=== PATIENT | female | born 1940 | race Caucasian/White ===

== ENCOUNTER 2017-07-14 12:29 | Inpatient (IN) | payer MEDICARE, MEDICAID ==
[~2017-07-14] VITALS: Ht 165.1 cm; Wt 71.8 kg
[~2017-07-14 12:29] MED LIST: ACETAMINOPHEN325 MG PO; ALDACTONE25 MG PO; CALCIUM 500 + D1 TAB PO; CLARITIN 10 MG10 MG PO; FERROUS SULFAT325 MG PO; IMODIUM2 MG PO; LEVOXYL75 MCG PO; LEXAPRO20 MG PO; LOPRESSOR25 MG PO; MEDI-NATURAL8.6 MG PO; NEXIUM40 MG PO; PRAVACHOL20 MG PO; VITAMIN B-1000 MCG/M SQ; VITAMIN D50000 UNIT PO; XANAX0.5 MG PO
--- NOTE | 2017-07-14 12:50 | NUR ---
PT ADMITTED TO FLOOR DIRECT ADMIT.
[2017-07-14 13:06] VITALS: BP 145/67
[2017-07-14 13:13] VITALS: BP 145/67; Ht 165.1 cm; Wt 71.8 kg
--- NOTE | 2017-07-14 13:13 | NUR ---
ADMISSION ASSESSMENT COMPLETE AT THIS TIME
[2017-07-14 13:59] LABS: BASOPHILS 0.5 % (0-2); EOSINOPHILS 4.3 % (0-7); HEMATOCRIT 38.2 % (36.0-48.0); HEMOGLOBIN 12.3 g/dL (12-16); IMMATURE GRANULOCYTES 0.2 % (0-5); LYMPHOCYTES 16.6 % (15-50); MCH 33.3 pg (26.0-34.0); MCHC 32.2 g/dL (31.0-37.0); MCV 103.5 fL (80.0-100.0); MEAN PLATELET VOLUME 8.9 fL (7.4-10.4); MONOCYTES 12.3 % (2-11); NEUTROPHILS 66.1 % (40-80); RBC 3.69 10x6/uL (4.00-5.40); RDW 13.2 % (11.5-14.5); WBC 6.5 10x3/uL (4.8-10.8)
[2017-07-14 14:06] LABS: PLATELET COUNT 211 10x3/uL (130-400)
[2017-07-14 14:15] LABS: ALBUMIN 3.4 g/dL (3.4-5.0); ANION GAP 11.9 mmol/L (8-16); BILIRUBIN - TOTAL 0.2 mg/dL (0.2-1.3); CALCIUM 9.2 mg/dL (8.5-10.1); CARBON DIOXIDE 28.7 mmol/L (21.0-32.0); CREATININE - SERUM 1.3 mg/dL (0.6-1.3); POTASSIUM - SERUM 4.6 mmol/L (3.5-5.1); PROTEIN - SERUM 6.3 g/dL (6.4-8.2)
--- NOTE | 2017-07-14 15:31 | NUR ---
PT DISCHARGED FROM FLOOR TO REHAB.
[2017-07-14 15:58] VITALS: BP 140/65
[2017-07-14 20:00] VITALS: BP 95/48
--- NOTE | 2017-07-14 20:00 | NUR ---
ASSESSMENT PER FLOWSHEET. BILAT. UPPER EXSPIRATORY WHEEZES. NON PRODUCTIVE COUGH. IV PATENT RT FOREARM OF NS AT 100CC'S/HR. VOIDED ON BEDPAN.
--- NOTE | 2017-07-14 21:00 | NUR ---
MEDS GIVEN PER NOV. SR UP X2 CALL LIGHT WITHIN REACH.
--- NOTE | 2017-07-14 23:28 | NUR ---
INC URINE BRIEF CHANGED WITH PINK PAD CHANGED.
--- NOTE | 2017-07-14 23:32 | NUR ---
C/O BEING SHORT OF BREATH INFORMED RT TECH RAUL FOR A PRN TX.
[2017-07-15] VITALS (7 sets, daily range): BP systolic 99–117; BP diastolic 48–85
--- NOTE | 2017-07-15 01:15 | NUR ---
REMAINS AWAKE WATCHING TV.
--- NOTE | 2017-07-15 04:00 | NUR ---
LAB HERE TO DRAW BLOOD. REMAINS AWAKE EATING LEVON CRACKERS.
[2017-07-15 05:19] LABS: BASOPHILS 0.2 % (0-2); EOSINOPHILS 0 % (0-7); HEMATOCRIT 35.2 % (36.0-48.0); HEMOGLOBIN 11.4 g/dL (12-16); IMMATURE GRANULOCYTES 0.3 % (0-5); LYMPHOCYTES 6.4 % (15-50); MCH 32.9 pg (26.0-34.0); MCHC 32.4 g/dL (31.0-37.0); MCV 101.7 fL (80.0-100.0); MEAN PLATELET VOLUME 9.2 fL (7.4-10.4); MONOCYTES 1.8 % (2-11); NEUTROPHILS 91.3 % (40-80); PLATELET COUNT 208 10x3/uL (130-400); RBC 3.46 10x6/uL (4.00-5.40); RDW 12.9 % (11.5-14.5); WBC 6.1 10x3/uL (4.8-10.8)
[2017-07-15 05:58] LABS: ALBUMIN 2.9 g/dL (3.4-5.0); BILIRUBIN - TOTAL 0.24 mg/dL (0.2-1.3); CALCIUM 8.7 mg/dL (8.5-10.1); CARBON DIOXIDE 23.6 mmol/L (21.0-32.0); CREATININE - SERUM 1.3 mg/dL (0.6-1.3); POTASSIUM - SERUM 4.6 mmol/L (3.5-5.1); PROTEIN - SERUM 6.3 g/dL (6.4-8.2)
--- NOTE | 2017-07-15 07:30 | NUR ---
RECIEVED PT DUIRNG WALKING ROUNDS. PT RESTING IN BED WITH NO COMPLAINTS OF PAIN. PT REQUESTING BREAKFAST AND EXPLAINED TO PT THAT BREAKFAST WOULD BE ON THE FLOOR SOON. ASSESSMENT DONE PER FLOWSHEET. BED IN LOW POSITION AND CALL LIGHT WITHIN REACH. WILL CONTINUE TO MONITOR.
--- NOTE | 2017-07-15 10:35 | CN ---
PATIENT NAME:DAVID ALVARADO MEDICAL RECORD: [id number] : 40 LOCATION:[facility] ADMIT DATE: 07/14/17 ACCOUNT: [id number] CONSULTING PHYSICIAN: CHEVY POLO MD REFERRING PHYSICIAN: FREDERIC SHEPHERD DO DATE OF CONSULTATION: 07/14/2017 CONSULT REQUESTING PHYSICIAN: Frederic Shepherd DO REASON FOR CONSULTATION: Acute exacerbation of chronic obstructive pulmonary disease, tracheobronchitis. HISTORY OF PRESENT ILLNESS: Ms. Alvarado is a 77-year-old very pleasant lady, at the time of visit she is sick for the last 3-4 days. She was getting some antibiotic injection, but she was not getting any better. She is coughing. She has shortness of breath, it sounds that she hears herself wheezing. There are no fever or chills, no night sweats. REVIEW OF SYSTEMS: Mainly in the history of present illness. PAST MEDICAL HISTORY: 1. History of cerebrovascular accident and transient ischemic attack in the past. 2. Hypertension. 3. Status post pacemaker placement for the sick sinus syndrome. 4. COPD. PAST SURGICAL HISTORY: She is status post pacemaker placement. ALLERGIES: SHE IS ALLERGIC TO SULFA, LIPITOR, HYDROCODONE, AND ZOCOR. PRESENT MEDICATIONS: On [employer] was reviewed. PERSONAL AND SOCIAL HISTORY: The patient is an ex-smoker. She is a nondrinker. FAMILY HISTORY: Noncontributory. PHYSICAL EXAMINATION: GENERAL: The patient is lying comfortably in bed. She is not in acute distress. VITAL SIGNS: The blood pressure is 145/67, pulse is 86, respiration is 18, temperature 99.1, SPO2 is 97% on room air. HEENT: Conjunctivae is pink, sclerae nonicteric. NECK: Supple, no JVD. CHEST: The chest excursion is minimal on both sides. There are wheezes on forceful expiration. HEART: Rhythm regular, normal heart sound, no murmur. ABDOMEN: Soft, bowel sounds present. No hepatosplenomegaly. RECTAL: Deferred. EXTREMITIES: No cyanosis, no clubbing, no pedal edema. SKIN: Warm, normal turgor. CENTRAL NERVOUS SYSTEM: The patient is awake and alert. There are no obvious cranial nerve abnormalities. The gait was not tested. LABORATORY DATA: Pending. CONSULT REPORT [id number] DAVID ALVARADO CHEST RADIOGRAPH: Pending. IMPRESSION: 1. Acute exacerbation of chronic obstructive pulmonary disease. 2. Acute tracheobronchitis. 3. Acute cough. 4. Hypothyroidism. 5. Hypertension. 6. History of cerebrovascular accident. 7. History of sick sinus syndrome, status post pacemaker placement. RECOMMENDATION: 1. Albuterol ipratropium nebulizer. 2. Add Brovana and budesonide nebulizer. 3. Methylprednisolone IV. 4. Levaquin IV. 5. Mucinex DM 2 tablets b.i.d. 6. Follow up labs and chest radiograph. Dr. Shepherd, thank you for involving me in the care of Ms. Alvarado. TRANSINT:[id number] Voice Confirmation ID: [id number] DOCUMENT ID: [id number] CHEVY POLO MD at 1035 CC: [id number] DICTATION DATE: 07/14/17 1412 RETAIL MERCHANDISING COORDINATOR: 07/14/17 1512 ADM IN [id number] [place] [address]
--- NOTE | 2017-07-15 15:02 | NUR ---
PATIENT WAS A DIRECT ADMIT OF DR SHEPHERD, HER PCP, FOR PNEUMONIA AND AECOPD. SHE LIVES AT [facility]. EMERGENCY CONTACT- LYNDSEY GRAY- [phone] PHARMACY- [facility] FOR SHORT TERM OF EMERGENCY MEDS HAS HX OF CVA, COPD, T10 COMPRESSION FX, RESTRICTIVE LUNG DZ, HTN, OSTEOPENIA, FE DEF ANEMIA, PACEMAKER AND ANXIETY.
[2017-07-16 05:05] VITALS: BP 138/66
[2017-07-16 08:33] VITALS: BP 114/60
--- NOTE | 2017-07-16 08:45 | NUR ---
ASSESSMENT COMPLETE. IV TO R FA PATENT. NS INFUSING AT 100 CC/HR VIA PUMP. RESTING QUIETLY AT THIS TIME. DENIES ANY NEEDS AT PRESENT.
[2017-07-16 10:15] LABS: BASOPHILS 0 % (0-2); EOSINOPHILS 0 % (0-7); HEMATOCRIT 34.7 % (36.0-48.0); HEMOGLOBIN 11.1 g/dL (12-16); IMMATURE GRANULOCYTES 0.3 % (0-5); LYMPHOCYTES 4.5 % (15-50); MCH 33.2 pg (26.0-34.0); MONOCYTES 2.6 % (2-11); NEUTROPHILS 92.6 % (40-80); PLATELET COUNT 224 10x3/uL (130-400); RBC 3.34 10x6/uL (4.00-5.40); RDW 13.5 % (11.5-14.5)
[2017-07-16 10:16] LABS: MCV 103.9 fL (80.0-100.0); WBC 8.7 10x3/uL (4.8-10.8)
[2017-07-16 10:27] LABS: ALBUMIN 2.9 g/dL (3.4-5.0); ANION GAP 13.7 mmol/L (8-16); BILIRUBIN - TOTAL 0.2 mg/dL (0.2-1.3); CALCIUM 8.5 mg/dL (8.5-10.1); CARBON DIOXIDE 24.6 mmol/L (21.0-32.0); CREATININE - SERUM 1.3 mg/dL (0.6-1.3); POTASSIUM - SERUM 4.3 mmol/L (3.5-5.1); PROTEIN - SERUM 6.2 g/dL (6.4-8.2)
[2017-07-16 12:26] VITALS: BP 119/65
[2017-07-16 17:06] VITALS: BP 121/48
--- NOTE | 2017-07-16 18:13 | NUR ---
Is the patient Alert and Oriented? Yes 0 * How many steps to enter\exit or inside your home? NONE 0 * PCP DR SHEPHERD PCP 0 * Pharmacy [facility] * Preadmission Environment Home Alone 0 * ADLs Independent 0 * List name and contact numbers for known caregivers / representatives who currently or will assist patient after discharge: KAY GRAY- FRIEND TO PATIENT AND HER HAIRDRESSER 0 * Community resources currently utilized None 0 * Please name any agencies selected above. N/A 0 * Additional services required to return to the preadmission environment? No 0 * Can the patient safely return to the preadmission environment? Yes 0 * Has this patient been hospitalized within the prior 30 days at any hospital? No 0
--- NOTE | 2017-07-16 18:23 | NUR ---
LATE ENTRY 1630 CM MET WITH THE PATIENT AT THE BEDSIDE. SHE IS SLIGHTLY HARD OF HEARING. STATES SHE LIVES IN ASSISTED LIVING AT [facility]. SHE STRONGLY DISMISSED NEEDING H/H. HAS 2 FRIENDS WHO ASSIST HER. ONE FRIEND IS KAY GRAY. SHE WAS CONCERNED HE DID NOT KNOW SHE WAS HOSPITALIZED. CM CALLED HIM SO THAT SHE COULD SPEAK WITH HIM. SHE STATED SHE COULD OBTAIN TRANSPORTATION TO HOME. PCP- DR SHEPHERD SNAG GRINDER DR TAYLOR PATIENT DENIES HOME OXYGEN, NEBULIZER TREATMENTS OR MDI'S. SHE IS A LITTLE ANXIOUS AND SLIGHTLY TREMULOUS. CM WILL REVISIT TO COMPLETE ASSESSMENT.
[2017-07-16 22:03] VITALS: BP 120/63
[2017-07-17 00:26] VITALS: BP 120/66
--- NOTE | 2017-07-17 03:00 | NUR ---
PT RESTING QUIETLY, EYES CLOSED. RESP EVEN, UNLABORED. CONTINUE CAPTION WRITER'S PLAN OF CARE.
[2017-07-17 05:47] VITALS: BP 113/56
--- NOTE | 2017-07-17 07:10 | NUR ---
REPORT RECEIVED FROM ENCEPHALOGRAPHER NURSE. CALL LIGHT IN REACH.
--- NOTE | 2017-07-17 07:17 | NUR ---
SPO2 87% ON RA FIO2 21%. APLLIED 2L VIA NC.
[2017-07-17 08:10] VITALS: BP 122/63
--- NOTE | 2017-07-17 08:30 | NUR ---
ASSESSMENT COMPLETED. DENIES NEEDS AT THIS TIME. CALL LIGHT IN REACH.
--- NOTE | 2017-07-17 09:21 | NUR ---
RESTING QUIETLY IN BED. RESP EVEN,NONLABORED. DENIES ANY NEEDS AT THIS TIME.
[2017-07-17] MEDS ORDERED: IPRAT-ALBUT 0.5-3 ML UPD (09:58)
[2017-07-17] MEDS ORDERED: BROVANA15 MCG/2 M INH (09:58)
[2017-07-17] MEDS ORDERED: TESSALON PERLE100 MG PO (09:59)
[2017-07-17] MEDS ORDERED: LEVAQUIN500 MG PO (09:59)
--- NOTE | 2017-07-17 10:47 | NUR ---
AM MEDS ADMINISTERED. CALL LIGHT IN REACH.
--- NOTE | 2017-07-17 12:16 | NUR ---
SPOKE WITH ZULEYKA @ [facility]. ZULEYKA VERIFIED THAT [facility] FOR MS [facility]IANO MEDICATIONS AND WILL BE ABLE TO OBTAIN NEBULIZER MEDS ON TUESDAY. WILL CONTACT [facility] TO OBTAIN 24 HR SUPPLY OF NEBULIZER MEDS.
--- NOTE | 2017-07-17 12:20 | NUR ---
IV DC'D WITH TIP INTACT.
[2017-07-17 12:51] VITALS: BP 93/60
--- NOTE | 2017-07-17 14:32 | NUR ---
XANAX PO. O2 SAT 93% ON ROOM AIR.
--- NOTE | 2017-07-17 14:46 | NUR ---
REPORT CALLED TO NURSE MARIE AT [facility].
--- NOTE | 2017-07-17 15:10 | NUR ---
DC'D TO VEHICLE VIA WC WITH FRIEND.
--- NOTE | 2017-07-17 16:52 | NUR ---
LATE ENTRY 1430 CM RECEIVED TC FROM CLINICAL COORDINATOR STATING PATIENT HAS NEBULIZER MEDICATIONS ORDERED. PATIENT HAS NO DME OR PREFERRED PROVIDER. TC TO [facility]. SPOKE WITH FRANCES. SHE WILL CONTACT THE PATIENT . [facility] WILL DELIVER TO HER HOME AND INSTRUCT HER ON USE. PATIENT FOR DISCHARGE TODAY. SHE WILL BE RETURNING TO [facility]. SHE HAS REFUSED HOME HEALTH. TC TO [facility]. SPOKE WITH THE NURSE, ZULEYKA, AT [phone]. PRIMARY NURSE, LIZETT, TO FAX DISCHARGE PAPERWORK TO [phone]. THERE IS NO TRANSPORTATION AVAILABLE ON THE WEEKEND. LYNDSEY GRAY IS HER POA. SHE IS THE TO KAY GRAY. CM CALLED TO VERIFY IF THEY WERE PROVIDING TRANSPORTATION TO HOME. LEFT VOICE MAIL NO ANSWER WAS RECEIVED. PRIMARY NURSE, LIZETT, STATED THEY [facility] WOULD PROVIDE TRANSPORTATION TO HOME. CM VISITED WITH THE PATIENT IN HER ROOM. SHE STATED SHE HAD NOT BEEN OOB. PHYSICAL THERAPY ORDERED TO [facility]. PATIENT IS WHEELCHAIR BOUND. SHE TRANSFERED FAIRLY WELL PER PHYSICAL THERAPY. PATIENT DISCHARGED TO ASSISTED LIVING VIA WHEELCHAIR W/ FRIENDS PROVIDING TRANSPORTATION.
== END 2017-07-17 15:10 | disposition home or self-care (01) | DRG 202 ==
LOC: D.MS 12:29
PROVIDERS: ADMIT Family Medicine
DX: J20.9 Acute bronchitis, unspecified (principal); J44.0 Chronic obstructive pulmonary disease with (acute) lower respiratory infection; J44.1 Chronic obstructive pulmonary disease with (acute) exacerbation; I10 Essential (primary) hypertension; Z95.0 Presence of cardiac pacemaker; Z86.73 Personal history of transient ischemic attack (TIA), and cerebral infarction without residual deficits; E03.9 Hypothyroidism, unspecified

== ENCOUNTER 2017-07-24 13:20 | Inpatient (IN) | payer MEDICARE, MEDICAID ==
[~2017-07-24] VITALS: Ht 165.1 cm; Wt 89.0 kg
[2017-07-24] VITALS (10 sets, daily range): BP systolic 93–139; BP diastolic 52–79; BMI 32.7
[~2017-07-24 13:20] MED LIST changes: +BROVANA15 MCG/2 M INH; +IPRAT-ALBUT 0.5-3 ML UPD; +LEVAQUIN500 MG PO; +TESSALON PERLE100 MG PO
[2017-07-24 14:07] LABS: BASOPHILS 0.2 % (0-2); EOSINOPHILS 1.5 % (0-7); HEMATOCRIT 22.3 % (36.0-48.0); IMMATURE GRANULOCYTES 0.7 % (0-5); LYMPHOCYTES 9.7 % (15-50); MCH 32.4 pg (26.0-34.0); MCHC 30.9 g/dL (31.0-37.0); MCV 104.7 fL (80.0-100.0); MEAN PLATELET VOLUME 9.3 fL (7.4-10.4); MONOCYTES 14.2 % (2-11); NEUTROPHILS 73.7 % (40-80); PLATELET COUNT 240 10x3/uL (130-400); RBC 2.13 10x6/uL (4.00-5.40); RDW 14.1 % (11.5-14.5); WBC 11.7 10x3/uL (4.8-10.8)
[2017-07-24 14:13] LABS: HEMOGLOBIN 6.9 g/dL (12-16)
[2017-07-24 14:24] LABS: INR 1.13 (0.85-1.17); PROTIME 14.3 SECONDS (11.6-15.0)
[2017-07-24 14:32] LABS: ALBUMIN 2.5 g/dL (3.4-5.0); ANION GAP 15.7 mmol/L (8-16); BILIRUBIN - TOTAL 0.03 mg/dL (0.2-1.3); CALCIUM 7.8 mg/dL (8.5-10.1); CARBON DIOXIDE 22.2 mmol/L (21.0-32.0); CREATININE - SERUM 1.2 mg/dL (0.6-1.3); POTASSIUM - SERUM 4.9 mmol/L (3.5-5.1); PROTEIN - SERUM 5.1 g/dL (6.4-8.2)
[2017-07-24 14:38] LABS: MAGNESIUM - SERUM 2.2 mg/dL (1.8-2.4)
--- NOTE | 2017-07-24 19:00 | NUR ---
REPORT REC'D. PATIENT CARE ASSUMED. ASSESSMENT COMPLETED PER FLOW SHEETS. PT AWAKE/ORIENTEDX3, DENIES DISCOMFORT AT THIS TIME. CONT AFIB ON BARREL WASHER MACHINE. LUNG SOUNDS DIMINISHED TO LLB,UNLABORED. O2 SAT 96% ON 2L VIA NC. RT HAND PIV INFUSING 1ST UNIT OF PRBC. NO SIGNS OF TRANSFUSION REACTION NOTED. WILL CONT TO MONITOR.
--- NOTE | 2017-07-24 19:20 | NUR ---
DR KAPADIATOOK HERE SEENG PT. ORDERS REC'D. CPOC
--- NOTE | 2017-07-24 21:00 | NUR ---
PT INCONTINENT OF URINE. JOHN CARE PROVIDED. LINEN AND GOWN CHANGED. SKIN CARE PROVIED. REPOSITONED FOR COMFORT. CALL LIGHT IN REACH.
--- NOTE | 2017-07-24 22:10 | NUR ---
PT INCONTINENT OF URINE. PERICARE PROVIDED. LINEN CHANGED. REPOSITIONED FOR COMFORT. CALL LIGHT IN REACH. CPOC.
--- NOTE | 2017-07-24 23:00 | NUR ---
REASSESSMENT COMPLETED PER FLOW SHETS. PT AWAKE WATCHING TV, PACED ON CM. NO ACUTE SINGS OF DISTRESS NOTED AT THIS TIME. VSS. CALL LIGHT IN REACH. CPOC.
[2017-07-24 23:57] LABS: HEMATOCRIT 27.5 % (36.0-48.0); HEMOGLOBIN 8.8 g/dL (12-16)
[2017-07-25] VITALS (24 sets, daily range): BP systolic 91–124; BP diastolic 7–96; Ht 165.1 cm; Wt 89.0 kg
--- NOTE | 2017-07-25 00:55 | NUR ---
PRBC 3RD UNIT STARTED TRANSFUSING PER ORDER. NO S/S OF TRANSFUSION REACTION NOTED. VSS. CONT TO MONITOR.
--- NOTE | 2017-07-25 03:00 | NUR ---
REASSESSMENT COMPLETED PER FLOW SHEETS. PT RESTING QUIETLY WITHOUT DISTRESS. VSS. CONT BLOOD TRANSFUSION. NO S/S NOTED. CALL LIGHT IN REAC. CPOC.
[2017-07-25 05:58] LABS: HEMATOCRIT 28.5 % (36.0-48.0); HEMOGLOBIN 9.4 g/dL (12-16)
[2017-07-25 06:28] LABS: % SATURATION 15 % (15-55); IRON 49 ug/dl (35-150); TOTAL IRON BIND CAPACITY 315 ug/dl (260-445); UNSAT IRON BIND CAPACITY 266 ug/dl (150-375)
--- NOTE | 2017-07-25 07:30 | NUR ---
DR. SHEPHERD HERE IN TO SEE PATIENT.
--- NOTE | 2017-07-25 08:15 | NUR ---
PATIENT HAD SMALL HARD FORMED DARK TARRY STOOL. PATIENT CLEANED AND REPOSITIONED FOR COMFORT. CALL LIGHT WITHIN REACH, BED IN LOW POSITION.
--- NOTE | 2017-07-25 08:26 | HP ---
PATIENT: DAVID TYLER MEDICAL RECORD: [id number] ACCOUNT: [id number] LOCATION:[facility] D.2302 : 40 ADMISSION DATE: 07/24/17 HISTORY AND PHYSICAL EXAMINATION HISTORY OF PRESENT ILLNESS: A 77-year-old female [facility], found slumped over in her chair, had a syncopal event. She was sitting in a wheelchair and went out a couple of times, aroused easily. PAST MEDICAL HISTORY: Significant for recent hospitalization, just discharged last week; COPD exacerbation; shortness of breath; multiple CVA. She is a DO NOT RESUSCITATE per power of staff attorney. ALLERGIES: LISTED SULFA, HYDROCODONE, SIMVASTATIN. CURRENT MEDICATIONS: As listed. REVIEW OF SYSTEMS: GENERAL: Hypersomnolence, extreme fatigue, weakness, lethargy, does arouse to verbal stimuli, answers coherently to a limited degree. HEENT: Denies cephalgia, visual changes. CARDIOVASCULAR: Denies chest pain. PULMONARY: Denies hemoptysis. GASTROINTESTINAL: Has had coffee-ground emesis in the ER, is heme positive. GENITOURINARY: Denies dysuria. MUSCULOSKELETAL: No acute changes, is wheelchair dependent. PHYSICAL EXAMINATION: VITAL SIGNS: Temperature 99.1, blood pressure 117/65, heart rate 82, respirations 22, O2 sats 95%. GENERAL: Somnolent, but responds to verbal stimuli. HEENT: Eyes; pupils are equally round and reactive. Ears; canals patent. Nose; nares patent. Throat; no erythema, no exudates. NECK: Supple. No lymphadenopathy. HEART: Regular rate and rhythm, rate of 64. LUNGS: Slightly diminished breath sounds. Breathing is nonlabored. ABDOMEN: Soft, nontender. Bowel sounds in all 4 quadrants. EXTREMITIES: Present times 4. NEUROLOGIC: Limited exam due to the patient's hypersomnolence. LABORATORY DATA: CBC; white count 11,700, hemoglobin 6.9, hematocrit 22.3, platelets 240. INR is 1.13, sodium 141, potassium 4.9, chloride 108, bicarb 22.2, BUN 55, creatinine 1.2, magnesium 2.2. T-bili 0.03, AST 14, ALT 17, CK 16. ProBNP 377. Chest x-ray, no significant change from prior. ASSESSMENT AND PLAN: Acute gastrointestinal bleed. The patient is typed and crossed. Will transfuse, admitted to the ICU. Consult GI. Protonix drip. Supportive care. TRANSINT:[id number] Voice Confirmation ID: [id number] DOCUMENT ID: [id number] HISTORY AND PHYSICAL [id number] DAVID TYLER ROBERT DO at 0826 CC: [id number] DICTATION DATE: 07/24/17 1520 KNITTING MACHINE FIXER: 07/24/17 1624 ADM IN [id number] [place] [address]
[2017-07-25 14:29] LABS: HEMATOCRIT 29.1 % (36.0-48.0); HEMOGLOBIN 9.6 g/dL (12-16)
[2017-07-25 14:42] LABS: CALCIUM 7.7 mg/dL (8.5-10.1); CARBON DIOXIDE 23.4 mmol/L (21.0-32.0); CREATININE - SERUM 1.1 mg/dL (0.6-1.3); POTASSIUM - SERUM 4.4 mmol/L (3.5-5.1)
--- NOTE | 2017-07-25 15:34 | NUR ---
* Is the patient Alert and Oriented? Yes 0 * PCP Dr. Shepherd 0 * Pharmacy Budget 0 * Preadmission Environment Assisted Living 0 * Facility Name [facility] 0 * ADLs Independent 0 * Equipment Nebulizer Wheelchair 0 * List name and contact numbers for known caregivers / representatives who currently or will assist patient after discharge: Tai Choi - [phone] 0 * Additional services required to return to the preadmission environment? Yes 0 * Can the patient safely return to the preadmission environment? Yes 0 * Has this patient been hospitalized within the prior 30 days at any hospital? Yes Patient Name: DAVID JAYSON Admission Status: ER Accout number: [id number] Admission Date: 07-24-2017 : 1940 Admission Diagnosis: Attending: ASIYA SHEPHERD Current LOS: 1 Anticipated DC Date: 07-27-2017 Planned Disposition: Assisted Living Primary Insurance: [facility] Discharge Planning Comments: CM met with patient to assess dc plans/needs. She is alert & oriented but seems a little confused. She initially tells me she lives at [facility] and uses [facility]. Upon further discussion, she confirms she lives at [facility] and uses [facility]. She states she uses a WC @ times, but no other DME. Asked about a home nebulizer- she stated, No. Call placed to Yuliya with [facility] - she states patient got a nebulizer on March 01, 2016. Voice message left for Cindy Choi (POCarter according to previous records) to return call. CM will follow. Science Professor: Sonia Mckeon
--- NOTE | 2017-07-25 17:38 | NUR ---
PATIENT IS AWAKE AND CONVERSING WITH FAMILY MEMBER. O2 DECREASED TO 2L/MIN VIA NC. CALL LIGHT WITHIN REACH, BED IN LOW POSITION. DR. CLEMENS SPOKE WITH POA ABOUT EGD FINDINGS WELL.
--- NOTE | 2017-07-25 19:00 | NUR ---
Received patient sitting up in bed with eyes open eating, assessment completed per flowsheet. Patient AO x4, speech is slowed but patient responds appropriately. Eyes PERRLA @ 4mm with brisk response, sclera is clear and slight reddened. S1/S2 noted NSR with 1st degree block on telemetry with HR 83, rhythmic and regular. Breathing is even and unlabored on 2L via NC with O2 sat 96%, lung sounds clear bilateral upper and mid with diminished lower. Abdomen is round and soft with bowel sounds active x4, non-tender. Michelle secured in place, clear yellow urine noted. Full ROM all extremities with weakness noted, all pulses palpable with cap refill < 3 sec. Slight reddened area on bottom, blanchable and intact. 18g PIV noted L AC, patent with fluids infusing. Patient denies pain or other needs at this time, "wants to go to other room". Repositioned for comfort, all VSS and will continue to monitor.
--- NOTE | 2017-07-26 03:12 | NUR ---
RED'D PATIENT FROM ICU. NO VISIBLE SIGNS OF DISTRESS. PATIENT DENIES NEEDS AT THIS TIME. BED IN LOWEST POSITION, CALL LIGHT WITHIN REACH, AND LUCIAN ALARM ON. ENCOURAGED THE PATIENT TO CALL IF SHE HAS NEEDS.
[2017-07-26 04:00] VITALS: BP 118/57
[2017-07-26 04:15] LABS: BASOPHILS 0.1 % (0-2); EOSINOPHILS 2.4 % (0-7); HEMOGLOBIN 9.4 g/dL (12-16); IMMATURE GRANULOCYTES 0.7 % (0-5); LYMPHOCYTES 11.2 % (15-50); MCH 32.2 pg (26.0-34.0); MCHC 32.4 g/dL (31.0-37.0); MEAN PLATELET VOLUME 9.5 fL (7.4-10.4); MONOCYTES 11.3 % (2-11); NEUTROPHILS 74.3 % (40-80); RDW 16.6 % (11.5-14.5)
[2017-07-26 04:22] LABS: MCV 99.3 fL (80.0-100.0); PLATELET COUNT 171 10x3/uL (130-400); RBC 2.92 10x6/uL (4.00-5.40); WBC 8.7 10x3/uL (4.8-10.8)
[2017-07-26 04:32] LABS: ALBUMIN 2.5 g/dL (3.4-5.0); ANION GAP 11.6 mmol/L (8-16); BILIRUBIN - TOTAL 0.45 mg/dL (0.2-1.3); CALCIUM 7.6 mg/dL (8.5-10.1); CARBON DIOXIDE 25.2 mmol/L (21.0-32.0); CREATININE - SERUM 1.1 mg/dL (0.6-1.3); POTASSIUM - SERUM 3.8 mmol/L (3.5-5.1); PROTEIN - SERUM 5.2 g/dL (6.4-8.2)
[2017-07-26 07:26] LABS: FOLATE (FOLIC ACID) - SERUM 9.3 ng/mL (>3.0)
[2017-07-26 08:20] VITALS: BP 109/63
--- NOTE | 2017-07-26 08:22 | NUR ---
AWAKE AND ALERT. ORIENTED X3. NO C/O AT THIS TIME. LUNGS HAVE CRACKLES IN UPPER LOBES. NO COUGH NOTED. SKIN IS INTACT WITHOUT REDNESS. IV TO RIGHT AC IS PATENT WITHOUT REDNESS AT INSERTION SITE. CARDOSO PATENT WITH CLEAR YELLOW URINE. REPOSTIONED IN BED FOR COMFORT. BREAKFAST SERVED IN ROOM.
--- NOTE | 2017-07-26 10:47 | NUR ---
Rehab Note- Acute Rehab Prescreen order received. The patient has [facility] insurance and will require a PreAuth prior to an acute rehab stay. The patient has a pending OT eval, she will also need a PT eval ordered and completed for the PreAuth. Will begin the PreAuth process. Spoke with LIT Alaniz. Thank you for this referral! Merry Jacobs RN Clinical Liaison, [facility] Rehab
--- NOTE | 2017-07-26 11:26 | NUR ---
Rehab Note- PreAuth started with [facility], Ref#[id number]. Awaiting notification to fax clinicals for review [facility]. Continue to follow at this time. Margo Jacobs RN Clinical Liaison, [facility] Rehab
[2017-07-26 11:37] VITALS: BP 126/65
--- NOTE | 2017-07-26 12:35 | NUR ---
OT NOTE: ATTEMPTED OT EVAL ON 2 DIFFERENT OCCASSIONS TODAY. PT REFUSED EACH TIME. WAS ASKED IF SHE WAS IN PAIN AND SHE REPORTED THAT SHE WAS NOT. SHE ONLY STATED THAT HER DR TOLD HER THAT SHE NEEDED THERAPY BUT SHE WAS NOT GOING TO DO IT. QUESTIONED PT TO WHY SHE WAS REFUSING AND SHE BECAME INCREASINGLY MORE AGITATED. SHE THEN TOLD THERAPIST NOT TO BOTHER HER ANYMORE. WILL RE ATTEMPT TOMORROW, HOWEVER, UNSURE HOW MOTIVATED PT WILL BE. THANK YOU FOR REFERAL, UZIEL RAUSCH, OTR/L
--- NOTE | 2017-07-26 14:16 | NUR ---
SAGAR WITH [facility] CALLED AND SPOKE WITH ADMNINISTRATOR AT [facility] ABOUT PATIENT. PATIENT REFUSED PT AND OT THIS AM. SAGAR WAS GOING TO CALL AND TALK TO DR SHEPHERD ABOUT PATIENT'S STATUS. CM WILL CONTINUE TO FOLLOW AND ASSIST WITH DISCHARGE PLANNING NEEDS. SAGAR WITH [facility]- [phone]
--- NOTE | 2017-07-26 15:36 | NUR ---
SAGAR WITH [facility] CAME UP AND GAVE CM A COPY OF THE ORDER FOR THE PATIENT TO BE ADMITTED IF APPROPRIATE, SHE WENT AND TALKED TO PATIENT AND PATIENT IS AGREEABLE AND THE PLAN IS TO BE DICHARGED TOMORROW BACK TO [facility] AND ADMITTED TO HOSPICE. CM WILL CONTINUE TO FOLLOW AND ASSIST WITH DISCHARGE PLANNING NEEDS
[2017-07-26 16:00] VITALS: BP 108/59
[2017-07-26 16:31] LABS: HEMATOCRIT 27.6 % (36.0-48.0); HEMOGLOBIN 9.1 g/dL (12-16)
--- NOTE | 2017-07-26 18:57 | NUR ---
ATE LESS THAN HALF OF SUPPER. NO CHANGES NOTED. DENIES NEEDS.
[2017-07-26 20:00] VITALS: BP 87/65
[2017-07-27 04:00] VITALS: BP 115/62
[2017-07-27 05:56] LABS: BASOPHILS 0.2 % (0-2); EOSINOPHILS 3.5 % (0-7); HEMATOCRIT 28.3 % (36.0-48.0); HEMOGLOBIN 8.9 g/dL (12-16); IMMATURE GRANULOCYTES 0.3 % (0-5); LYMPHOCYTES 12.3 % (15-50); MCH 31.7 pg (26.0-34.0); MCHC 31.4 g/dL (31.0-37.0); MCV 100.7 fL (80.0-100.0); MEAN PLATELET VOLUME 9.6 fL (7.4-10.4); MONOCYTES 10.8 % (2-11); NEUTROPHILS 72.9 % (40-80); PLATELET COUNT 158 10x3/uL (130-400); RBC 2.81 10x6/uL (4.00-5.40)
[2017-07-27 06:11] LABS: WBC 5.9 10x3/uL (4.8-10.8)
[2017-07-27 08:36] VITALS: BP 111/56
--- NOTE | 2017-07-27 11:21 | NUR ---
OT NOTE: ATTEMPTED EVAL AGAIN THIS AM. PT REFUSED AGAIN. NOTED INCREASED EDEMA IN L HAND . PT CONTINUED TO REFUSE TO GET UP OUT OF BED OR PARTICIPATE IN THER ACT. UZIEL RAUSCH, OTR/L
[2017-07-27 14:24] VITALS: BP 122/58
--- NOTE | 2017-07-27 14:46 | NUR ---
NUTRITION F/U CHART REVIEWED, PT VISIT. TOLERATING REG GASTRIC SOFT DIET. 50 TO 75% INTAKE RECENT MEALS. RD FOLLOWING
--- NOTE | 2017-07-27 15:41 | NUR ---
PT CONFUSED AT TIMES AOX1 RESP EVEN AND NONLABORED PT DENIES NEEDS AT THIS TIME SRX2 BED AT LOWEST SETTING CALL LIGHT WITHIN REACH WILL CONTINUE TO MONITOR
[2017-07-27 16:23] VITALS: BP 132/64
[2017-07-27 20:00] VITALS: BP 134/65
--- NOTE | 2017-07-27 20:00 | NUR ---
ASSESSMENT PER FLOWSHEET. RT ARM RED WITH BLISTERS AND SWOLLEN. PT STATES THAT IS WHERE HER IV HAD BEEN. RT ARM ELEVATED ON PILLOWS WITH WARM MOSIT HEAT APPLIED. CARDOSO TO BEDSIDE DRAINAGE WITH YELLOW URINE. SR UP X2 CALL LIGHT WITHIN REACH LUCIAN BED ALARM MAT ON.
--- NOTE | 2017-07-27 20:30 | NUR ---
INC LARGE SEMISOFT STOOL. CLEANED AND DRIED. PARTIAL LINENS CHANGED.
--- NOTE | 2017-07-27 21:00 | NUR ---
MEDS GIVEN PER MAR.
--- NOTE | 2017-07-27 23:00 | NUR ---
INCONTINENT OF LARGE AMOUNT SEMISOFT STOOL. CLEANED AND DRIED PARTIAL LINENS CHANGE DONE.
[2017-07-28] VITALS: BP 121/54
--- NOTE | 2017-07-28 02:45 | NUR ---
INC STOOL CLEANED AND DRIED WITH PARTIAL LINENS CHANGE DONE.
[2017-07-28 04:00] VITALS: BP 133/69
--- NOTE | 2017-07-28 04:15 | NUR ---
EYES CLOSED REPIRATIONS WITH EASE AND UNLABORED.
[2017-07-28 04:50] LABS: BASOPHILS 0.3 % (0-2); HEMATOCRIT 30.6 % (36.0-48.0); HEMOGLOBIN 9.8 g/dL (12-16); IMMATURE GRANULOCYTES 0.3 % (0-5); LYMPHOCYTES 9.4 % (15-50); MEAN PLATELET VOLUME 9.8 fL (7.4-10.4); MONOCYTES 12.2 % (2-11); NEUTROPHILS 73.8 % (40-80); PLATELET COUNT 174 10x3/uL (130-400); RBC 3.06 10x6/uL (4.00-5.40); RDW 15.3 % (11.5-14.5); WBC 7.3 10x3/uL (4.8-10.8)
[2017-07-28 05:07] LABS: ANION GAP 12.1 mmol/L (8-16); CALCIUM 8.1 mg/dL (8.5-10.1); CARBON DIOXIDE 26.3 mmol/L (21.0-32.0); POTASSIUM - SERUM 3.4 mmol/L (3.5-5.1)
--- NOTE | 2017-07-28 06:30 | NUR ---
MEDS GIVEN PER MAR. NO CHANGES IN ASSESSMENT.
--- NOTE | 2017-07-28 07:36 | NUR ---
PATIENT RESTING QUIETLY WITH EYES CLOSED. NO S/S OF DISTRESS NOTED. OXYGEN ON AT 2L PER NC. CALL LIGHT IN PATIENT'S REACH. LUCIAN MAT ALARM ON FOR PATIENT'S SAFETY. WILL MONITOR PATIENT.
--- NOTE | 2017-07-28 08:57 | NUR ---
PRAVEEN RESTING IN HER BED WITH HER EYES CLOSED. PATIENT AWAKENS TO VERBAL STIMULI. PATIENT IS ALERT AND ORIENTED TO PERSON AND PLACE, BUT DISORIENTED TO TIME AND SITUATION. NO COMPLAINTS OF PAIN AT PRESENT TIME. SCHEDULED CARAFATE GIVEN TO PATIENT. PATIENT TOLERATED WELL. ASSISTED PATIENT WITH HER BREAKFAST TRAY. ASSESSMENT COMPLETED. SEE FLOWSHEET FOR ANY DETAILS. CALL LIGHT IN PATIENT'S REACH. LUCIAN MAT IN PLACE FOR PATIENT'S SAFETY. WILL CONTINUE TO MONITOR PATIENT.
[2017-07-28 09:07] VITALS: BP 108/54
--- NOTE | 2017-07-28 09:25 | NUR ---
Patient will be discharging today [facility] via their transportation on hospice. [facility] will accept patient when she arrives. Patient will be hand picker at 11:00 am.
--- NOTE | 2017-07-28 10:04 | NUR ---
DISCHARGE INSTRUCTIONS VERBALIZED TO PATIENT. PATIENT STATES SHE IS UNABLE TO SIGN HER DISCHARGE PAPERS. PATIENT WAS ABLE TO INITIAL HER DISCHARGE PAPERS.
--- NOTE | 2017-07-28 11:34 | NUR ---
REPORT CALLED TO SADIE GARDINER AT [facility]. PATIENT TO BE DISCHARGED LATER TODAY.
--- NOTE | 2017-07-28 15:00 | NUR ---
[facility] HERE TO PICK PATIENT UP. ASSISTED PATIENT WITH GETTING DRESSED AND HER SHOES ON. TRANSFERRED PATIENT VIA BED TO THE WHEELCHAIR. HIWOT AND THE GRAPHITE MILL OPERATOR FROM [facility] HERE TO DRIVE PATIENT BACK TO [facility].
== END 2017-07-28 15:00 | disposition home health service (06) | DRG 378 ==
LOC: D.ER 13:20 → D.MS 15:05 → D.ICU 15:05 → D.MS 07-25 21:15
PROVIDERS: Emergency Medicine; Internal Medicine Gastroenterology; ADMIT Family Medicine
PROC: 0DB78ZX Excision of Stomach, Pylorus, Via Natural or Artificial Opening Endoscopic, Diagnostic (ICD-10-PCS; principal; 2017-07-25 17:00)
DX: K25.4 Chronic or unspecified gastric ulcer with hemorrhage (principal); D62 Acute posthemorrhagic anemia; K44.9 Diaphragmatic hernia without obstruction or gangrene; R55 Syncope and collapse; J44.9 Chronic obstructive pulmonary disease, unspecified; F03.90 Unspecified dementia, unspecified severity, without behavioral disturbance, psychotic disturbance, mood disturbance, and anxiety; I10 Essential (primary) hypertension; Z95.0 Presence of cardiac pacemaker; Z86.73 Personal history of transient ischemic attack (TIA), and cerebral infarction without residual deficits; Z66 Do not resuscitate